=== PATIENT | female | born 1970 | race Caucasian/White ===

== ENCOUNTER → 2018-05-20 08:18 | Outpatient (CLI) | payer OTHER, SELFPAY ==
--- NOTE | 2018-05-20 08:23 | BI_ITS ---
MAMMOGRAPHY - BILATERAL SCREENING REASON FOR EXAM: Female, 47 years old. Routine annual screening examination. PERTINENT HISTORY: Grandmother with breast cancer. TECHNIQUE: Digital bilateral breast dorina (3D mammographic acquisition) in the CC and MLO projections. 2-D mediolateral oblique (MLO) and craniocaudad (CC) views of both breasts were obtained. CAD: Full Field Digital Mammography with Computer Added Detection was performed. COMPARISON: Comparison is made with prior examination of March 03, 2013. FINDINGS: Breast Composition: The breasts are extremely dense, which lowers the sensitivity of mammography. There are no dominant masses or suspicious calcifications. No other significant abnormalities are identified. There has been no significant change since the prior study. BI/SCREENING MAMM (CAD), BILAT IMPRESSION: Stable bilateral screening mammogram. Yearly follow-up mammogram recommended. (A) ASSESSMENT CATEGORY: BIRADS Category 1: Negative. A letter regarding these results will be sent to the patient by the facility within 30 days. Approximately 10% of breast cancers are not detected by mammography. A normal mammogram should not delay biopsy of a clinically suspicious abnormality. [id number] Electronically Signed: Aníbal Murguia MD at 9:22 EST Tel [phone], Service support ,
--- OUTSIDE RECORDS SUMMARY | 2018-07-06 06:14 | XMS RPT_ITS ---
:1970 Author Organization [facility] Care Team Providers Name Role Phone Laverne Johnson Attending Unavailable Hernandez Rodriguez Primary Care Unavailable PROBLEMS PROBLEMS No Problem Records FoundPROCEDURES PROCEDURES No Procedure Records FoundRESULTS RESULTS SCREENING MAMM (CAD), Observed: 05/20/2018 Status: F Source: TAMIKO BILAT 8:23 AM [facility] REPOSITORY [facility] Imaging Services [address] [place] [address] SCREENING MAMM (CAD), BILAT MR#: [id number] Acct: [id number] Name: CORKY POWELL Rep #: [id number] : 1970 F 47 From: Aníbal Murguia MD PCP: Hernandez Rodriguez DO Status: REG CLI Study: SCREENING MAMM (CAD), BILAT Date of Exam: 05/20/18 Exam# [id number] Ordering Dr: Laverne Johnson MD MAMMOGRAPHY - BILATERAL SCREENING REASON FOR EXAM: Female, 47 years old. Routine annual screening examination. PERTINENT HISTORY: Grandmother with breast cancer. TECHNIQUE: Digital bilateral breast dorina (3D mammographic acquisition) in the CC and MLO projections. 2-D mediolateral oblique (MLO) and craniocaudad (CC) views of both breasts were obtained. CAD: Full Field Digital Mammography with Computer Added Detection was performed. COMPARISON: Comparison is made with prior examination of March 03, 2013. FINDINGS: Breast Composition: The breasts are extremely dense, which lowers the sensitivity of mammography. There are no dominant masses or suspicious calcifications. No other significant abnormalities are identified. There has been no significant change since the prior study. BI/SCREENING MAMM (CAD), BILAT IMPRESSION: Stable bilateral screening mammogram. Yearly follow-up mammogram recommended. (A) ASSESSMENT CATEGORY: BIRADS Category 1: Negative. A letter regarding these results will be sent to the patient by the facility within 30 days. Approximately 10% of breast cancers are not detected by mammography. A normal mammogram should not delay biopsy of a clinically suspicious abnormality. [id number] Electronically Signed: Aníbal Murguia MD at 9:22 EST Tel [phone], Service support , CC: Hernandez Rodriguez DO; Laverne Johnson MD Integrity Analyst: Signed ALLERGIES ALLERGIES No Allergies Records FoundENCOUNTERS ENCOUNTERS ADMIT/DISCHARGE ACCOUNT ADMITTING ENCOUNTER LOCATION SOURCE NUMBER CLASS 05/20/2018 [id number] Ambulatory Tamiko Morrison [address] [place] [address] ing:OPBI Repository PAYERS PAYERS ENCOUNTER GUARANTOR PAYER SUBSCRIBER SOURCE 05/20/2018 SHEILA POWELL3331 Primary SHEILA PEÑAB: Tamiko RODRIGUEZOOTRISTON, Insurance:MEDICAL [id number] [facility]ly [facility] [address]Ljf: [facility] Number: Repository HP) [id number] Date:[id number] [address] [address]FL: 05/20/2018 Secondary NOT GIVENUNK [place] Insurance:SELF PAY [facility] Number: Effective Repository Date:2018-04-03
== END ==
PROVIDERS: Family Provider Family Medicine; PCP Family Medicine; Visit Provider Obstetrics & Gynecology
DX: Z12.31 Encounter for screening mammogram for malignant neoplasm of breast (principal)
CPT/HCPCS: 77063; 77067

== ENCOUNTER → 2018-07-23 08:38 | Outpatient (CLI) | payer OTHER, SELFPAY ==
[2018-07-22 09:56] VITALS: BMI 22.8
[2018-07-28 11:03] LABS: HPV APTIMA, High Risk Negative (Negative)
== END ==
PROVIDERS: Family Provider Family Medicine; PCP Family Medicine; Referring Provider Obstetrics & Gynecology; Visit Provider Obstetrics & Gynecology
DX: Z12.4 Encounter for screening for malignant neoplasm of cervix (principal)
CPT/HCPCS: 87624; 88175; G0145

== ENCOUNTER → 2018-09-09 09:25 | Outpatient (CLI) | payer OTHER, SELFPAY ==
[2018-07-22 09:56] VITALS: BMI 22.8
[2018-09-09 10:12] LABS: Cholesterol 220 mg/dL (200); Glucose 92 mg/dL (74-106); High Density Lipoprotein 50 mg/dL; Triglycerides 90 mg/dL; Very Low Density Lipoprotein 18 mg/dL (5-40)
== END ==
PROVIDERS: Family Provider Internal Medicine; PCP Internal Medicine; Referring Provider Obstetrics & Gynecology; Visit Provider Obstetrics & Gynecology
DX: Z13.220 Encounter for screening for lipoid disorders (principal); Z13.1 Encounter for screening for diabetes mellitus
CPT/HCPCS: 36415; 80061; 82947

== ENCOUNTER → 2018-09-30 10:51 | Outpatient (CLI) | payer OTHER, SELFPAY ==
[2018-09-30 10:22] VITALS: BMI 21.9
[2018-09-30 12:36] LABS: Absolute Lymphocyte Count 2.36 X10^3/ul (0.83-4.51); Absolute Neutrophil Count 3.4 X10^3/uL (2.0-7.7); Basophil# 0.02 X10^3/uL; Basophil% 0.3 % (0-1); Eosinophil# 0.21 X10^3/uL; Eosinophils% 3.2 % (0-5); Hematocrit 43.6 % (37-47); Hemoglobin 14.5 g/dl (12.0-15.0); Lymphocyte # 2.36 X10^3/ul (4.0); Mean Corp Hgb Conc 33.3 g/gl (32-36); Mean Corpuscular Hgb 30.6 pg (27.0-32.0); Mean Platelet Vol. 10.3 fl (6.2-12.0); Monocyte# 0.57 X10^3/uL; Monocyte% 8.7 % (0-10); Neutrophil % 51.8 % (47-70); Platelet Count 310 K/mm3 (150-450); RBC Distribution Width CV 13.1 % (11.6-14.6); RBC Distribution Width SD 43.7 fl (35.1-43.9); Red Blood Count 4.74 M/mm3 (4.2-5.4); White Blood Count 6.6 K/mm3 (4.4-11.0)
[2018-09-30 12:45] LABS: ALB/GLOB Ratio 1.2 RATIO (0.9-2.4); AST(SGOT) 16 U/L (15-37); Alanine Aminotransfer ALT/SGPT 24 U/L (13-56); Albumin, Serum 4.2 g/dL (3.2-5.0); Alkaline Phosphatase 82 U/L (45-117); Anion Gap 3 (5-15); BUN 18 mg/dL (7-18); BUN/Creat Ratio 20.9 RATIO (10-20); Calcium,Total 8.9 mg/dL (8.5-10.1); Chloride 108 mmol/L (98-107); Creatinine, Serum 0.86 mg/dL (0.55-1.02); EST Glomerular Filtration Rate 75 mL/min (>60); Est Glom Filt Rate - Afr Amer 90 mL/min (>60); Globulin 3.4 g/dL (2.2-4.2); Glucose 91 mg/dL (74-106); Potassium 4.4 mmol/L (3.5-5.1); Protein, Total 7.6 g/dL (6.4-8.2); Sodium Level 138 mmol/L (136-145)
[2018-09-30 12:46] LABS: POSITIVE COUNT NO; POSITIVE DIFFERENTIAL NO; POSITIVE MORPHOLOGY NO
== END ==
PROVIDERS: Family Provider Internal Medicine; PCP Family Medicine; Visit Provider Internal Medicine
DX: Z00.00 Encounter for general adult medical examination without abnormal findings (principal)
CPT/HCPCS: 36415; 80053; 85025

== ENCOUNTER → 2024-10-08 | Outpatient (CLI) | payer OTHER, SELFPAY ==
[2024-10-08 13:26] LABS: Absolute Lymphocyte Count 2.79 X10^3/uL (0.83-4.51); Absolute Neutrophil Count 3.3 X10^3/uL (2.0-7.7); Basophil# 0.02 X10^3/uL; Basophil% 0.3 % (0-1); Eosinophil# 0.15 X10^3/uL; Eosinophils% 2.2 % (0-5); Hematocrit 41.8 % (37-47); Hemoglobin 14.5 g/dL (12.0-15.0); Lymphocyte # 2.79 X10^3/ul (0.83-4.51); Lymphocyte % 41.5 % (19-41); Mean Corp Hgb Conc 34.7 g/dL (32-36); Mean Corpuscular Hgb 31.3 pg (27.0-32.0); Mean Corpuscular Volume 90.1 fL (81-99); Monocyte% 7.4 % (0-10); NRBC Flagged by Analyzer 0 % (0-5); Neutrophil # 3.25 X10^3/uL (2.7-7.7); Neutrophil % 48.3 % (47-70); Platelet Count 278 K/mm3 (150-450); RBC Distribution Width CV 12.8 % (11.6-14.6); RBC Distribution Width SD 42.2 fl (35.1-43.9); Red Blood Count 4.64 M/mm3 (4.2-5.4); White Blood Count 6.7 K/mm3 (4.4-11.0)
[2024-10-08 13:50] LABS: Hemoglobin A1c 5.6 % (<=5.6)
[2024-10-08 14:41] LABS: ALB/GLOB Ratio 1.5 RATIO (0.9-2.4); AST(SGOT) 21 U/L (<=31); Alanine Aminotransfer ALT/SGPT 20 U/L (<=34); Albumin, Serum 4.5 g/dL (3.5-5.0); Alkaline Phosphatase 88 U/L (35-104); Anion Gap 11 (5-15); BUN 17 mg/dL (4-19); BUN/Creat Ratio 20.6 RATIO (10-20); Calcium,Total 9.2 mg/dL (7.6-11.0); Chloride 102 mmol/L (98-108); Cholesterol 224 mg/dL (<=200); Creatinine, Serum 0.84 mg/dL (0.70-1.20); EST Glomerular Filtration Rate 82 (>60); Globulin 3.1 g/dL (2.2-4.2); Glucose 88 mg/dL (70-99); High Density Lipoprotein 50 mg/dL; Low Density Lipoprotein Calc. 157 mg/dL; Protein, Total 7.6 g/dL (5.9-8.4); Sodium Level 137 mmol/L (133-145); Total Bilirubin 1.26 mg/dL (0.00-1.30); Triglycerides 83 mg/dL; Very Low Density Lipoprotein 17 mg/dL (5-40); cholesterol:hdl ratio screen 4.47
[2024-10-08 14:58] LABS: Vitamin D,25 Hydroxy 41.3 ng/mL (30-100)
[2024-10-13 10:09] LABS: HPV APTIMA, High Risk Negative (Negative)
== END | disposition home or self-care (01) ==
LOC: LAB 12:25
PROVIDERS: Referring Provider Obstetrics & Gynecology; Visit Provider Obstetrics & Gynecology
DX: Z00.00 Encounter for general adult medical examination without abnormal findings (principal); Z13.1 Encounter for screening for diabetes mellitus; Z13.29 Encounter for screening for other suspected endocrine disorder; Z13.21 Encounter for screening for nutritional disorder; Z13.220 Encounter for screening for lipoid disorders
CPT/HCPCS: 36415; 80053; 80061; 82306; 83036; 84443; 85025; 87624; 88175; G0145

== ENCOUNTER → 2024-10-13 | Outpatient (CLI) | payer OTHER, SELFPAY ==
--- NOTE | 2024-10-13 14:45 | BI_ITS ---
EXAM: SCRN MAMM (CAD)W/DEZ BILAT DATE: 10/13/2024 CLINICAL HISTORY: F, Age 54 y/o , SCREENING MAMMOGRAM BREAST CANCER RISK ASSESSMENT: Not reported TECHNIQUE: Bilateral screening digital breast tomosynthesis with 2D and 3D images. Computer aided detection. COMPARISON: Prior exam(s) were compared FINDINGS: TISSUE DENSITY: The breast tissue is extremely dense which lowers the sensitivity of mammography. Bilateral Breast Mammographic Findings: No suspicious masses, calcifications or other abnormalities are identified. BI/SCRN MAMM (CAD)W/DEZ BILAT IMPRESSION: OVERALL FINAL ASSESSMENT: BIRADS 1 NEGATIVE RECOMMENDATION: Routine annual follow-up in 1 Year A letter with findings and recommendations will be mailed to the patient. Reading Location: [id number]
== END | disposition home or self-care (01) ==
LOC: OPBI 14:16
PROVIDERS: Referring Provider Obstetrics & Gynecology; Visit Provider Obstetrics & Gynecology
DX: Z12.31 Encounter for screening mammogram for malignant neoplasm of breast (principal)
CPT/HCPCS: 77063; 77067

== ENCOUNTER 2024-12-16 07:12 | Day surgery (SDC) | payer OTHER, SELFPAY ==
[2024-12-16] VITALS (9 sets, daily range): BP systolic 90–134; BP diastolic 58–90; PULSE 64–84; RESP 16–18; TEMP 36.4–36.7; O2SAT 97–98; BMI 23.4
--- NOTE | 2024-12-16 07:22 | H&P.OPEN ---
[facility] General General Date of Service: 12/16/24 HPI Narrative CORKY REYN[place]DS[place]LE, is a 54 F who presents for screening colonoscopy. Patient never had previous colonoscopy. Patient denies any family history of colon cancer. Patient has bowel movements daily denies any blood. Patient denies any chronic abdominal pain/nausea/vomiting/reflux. [facility] Medical History Wears glasses High cholesterol Non-smoker Frequent headaches Psoriasis History of fracture of nose Home Medications ?Medication ?Instructions ?Recorded ?Last Taken ?Type clobetasol 0.05 % topical ointment 1 applic topical QHS #30 grams 10/08/24 12/15/24 Rx Allergy/AdvReac Type Severity Reaction Status Date / Time penicillin G Allergy Mild Other Verified 12/16/24 07:27 Family History Mother Kidney disease Hypertension Father Diabetes Heart disease Hyperlipidemia Myocardial infarction Grandmother Breast cancer CVA (cerebral vascular accident) Surgical History History of nasal surgery Social History Smoking Status: Never smoker alcohol intake: never substance use type: does not use caffeine: Yes what type of physical activity do you participate in: walking seatbelt use: always do you feel safe at home: Yes additional social history: Shawn- Chiro Patient is a repairer [employer] Past Medical/Surgical History Planned Operation Planned Operative Procedure(s): cscope Previous Hospitalizations/Surgeries HX Hospitalizations: No Any Problems With Anesthesia: No You/Your Family Experience Fever (Hyperthermia) With Anes: No Cholinesterase deficiency: No Cardiovascular Hx Hypertension: No Respiratory Hx Sleep Apnea: No Hx Respiratory Tract Infection/Cold (presently): No Do You Snore Loudly (louder than talking or can be heard): No Do You Often Feel Tired/ Fatigued/ Sleepy Dring Daytime?: No Has Anyone Observed You Stop Breathing During Sleep?: No Result (for STOP score): Negative Smoking Status: Never smoker Neurological Does patient have nerve stimulator: No Reproduction : No Allergies penicillin G Allergy (Mild, Verified 12/16/24 07:27) Other Discharge Is Pt Admitted From a Correction, or a Alf: No After D/C, Where Do you Plan to Go: Return Home Physical Exam Const alert, oriented x3 and no apparent distress HEENT normocephalic and head/scalp atraumatic Resp normal respiratory effort Cardio regular rate GI soft to palpation and non-tender; Negative for non-distended Palpation: Negative for guarding Extremity no clubbing, cyanosis or edema Skin no rashes or lesions noted Neuro CN's II-XII intact bilaterally Psych mental status grossly normal Assessment & Plan Assessment/Plan (1) Screening for colon cancer: Surgery Risks - Colonoscopy I discussed with the patient the risks of the procedure: Yes Risks Include but are not Limited To: Risks include but are not limited to: Bleeding, perforation requiring further surgery, inability to complete colonoscopy requiring barium enema.
[2024-12-16] MEDS: Lactated Ringers 1,000 ML 15 ML IV (07:38)
--- NOTE | 2024-12-16 07:54 | PCM.PRE.AN2 ---
ASA Classification* ASA Classification ASA Classification: 1 Assessment & Plan Anesthesia* Anesthesia Assessment Anesthesia Assessment: Discussed sedation and/or anesthesia options, risks, benefits, and alternatives with patient/parents/legal guardian/POA. Questions invited. The patient/parents/legal guardian/POA seems to understand and agrees to proceed with anesthesia plan. Reviewed the physical assessment, medical history, allergy history and patient home medications list prior to surgery/procedure/anesthetic and documented any changes. Performed airway and anesthesia risk assessments. Anesthesia Type Anesthesia Type: MAC History Source History Obtained from:: Patient and Chart Anesthesia Focused Assessment* Temperature: 98.0 F Pulse Rate: 84 Blood Pressure: 134/90 Respiratory Rate: 18 Pulse Ox: 98 Airway Assessment Mouth opens: >3 cm Mallampati Score: I Teeth Condition: Caps/Crowns Neck Range of motion (ROM): Full ROM Labs Anesthesia Preop lab: CBC WBC 6.7 K/mm3 (4.4-11.0) 10/08/24 12:10/08/24 RBC 4.64 M/mm3 (4.2-5.4) 10/08/24 12:49 10/08/24 Hgb 14.5 g/dL (12.0-15.0) 10/08/24 12:49 10/08/24 Hct 41.8 % (37-47) 10/08/24 12:10/08/24 Plt Count 278 K/mm3 (150-450) 10/08/24 12:49 10/08/24 CHEMISTRY Potassium 4.0 mmol/L (3.3-5.1) 10/08/24 12:10/08/24 Sodium 137 mmol/L (133-145) 10/08/24 12:49 10/08/24 BUN 17 mg/dL (4-19) 10/08/24 12:49 10/08/24 Creatinine 0.84 mg/dL (0.70-1.20) 10/08/24 12:10/08/24 Glucose 88 mg/dL (70-99) 10/08/24 12:49 10/08/24 TSH 1.580 uIU/mL (0.300-4.200) 10/08/24 12:49 10/08/24 COAG Pre-Assessment Diagnosis/Proposed Procedure Planned Operative Procedure(s): cscope Anesthesia History Anesthesia History - crime scene examiner: Anesthesia History - crime scene examiner Hx Hospitalization No 12/16/24 07:24 Any Problems With Anesthesia No 12/16/24 07:24 Cholinesterase deficiency No 12/16/24 07:24 You/Your Family Experience No 12/16/24 07:24 fever (hyperthermia) with Relationship Recent Exposure to Contagious No 12/16/24 07:28 Disease Does patient have nerve No 12/16/24 07:24 stimulator Patient instructed to have device shut off --Does patient have Pacemaker No 12/16/24 07:28 or ICD? When Was Last Pacemaker Check QUESTION #4 FULL TEXT: You/Your Family Experience fever (hyperthermia) with Anesthesia Last Oral Intake Last Oral intake: Last Oral Intake NPO since 21:00 12/16/24 07:28 Meds taken in AM with sips of water? Meds patient instructed to take am of surgery PONV PONV - crime scene examiner: PONV - crime scene examiner Female Yes 12/14/24 12:16 HX of Motion Sickness No 12/14/24 12:16 HX of N/V After Surgery No 12/14/24 12:16 Non-Smoker Yes 12/14/24 12:16 Duration of Surgery greater No 12/14/24 12:16 than 60 minutes Number of Risk Factors 2 12/14/24 12:16 PONV Score Moderate Risk 12/14/24 12:16 Height & Weight Height & Weight: Anesthesia: Height & Weight Height 5 ft 3 in 12/16/24 07:28 Weight: 60 kg 12/16/24 07:28 Body Mass Index (BMI) 23.4 12/16/24 07:28 Respiratory Assessment Respiratory Assessment - crime scene examiner: Respiratory Tract Infection Hx - crime scene examiner Hx Respiratory Tract Infection No 12/16/24 07:24 STOP Sleep Apnea STOP Sleep Apnea - crime scene examiner: STOP Sleep Apnea - crime scene examiner Hx Hypertension No 12/16/24 07:24 Hx Sleep Apnea No 12/16/24 07:24 CPAP BIPAP Do you snore loudly (louder No 12/16/24 07:24 than talking or can be heard Do you often feel tired/ No 12/16/24 07:24 fatigued/ sleepy during daytime? Has anyone observed you stop No 12/16/24 07:24 breathing during sleep? STOP Results Negative 12/16/24 07:24 QUESTION #5 FULL TEXT : Do you snore loudly (louder than talking or can be heard through closed doors)? Tobacco Use History Tobacco Use History - crime scene examiner: Tobacco Use History - crime scene examiner Tobacco Use Smoking Status Never smoker 12/16/24 07:24 Hx Tobacco Use No 12/14/24 12:16 Years Smoking Packs Smoked per Day Smoking Cessation Date was within the last 15 years Hx Smoking Cessation Date Hx Smoking Cessation Counseling Hematologic Medial History Hematologic Hx - crime scene examiner: Hematologic Medical Hx - correctional agency director Hx of Blood Transfusion No 12/14/24 12:16 Hx of Transfusion in last 3 No 12/14/24 12:16 Months Date of Last Transfusion (if within last 3 months) Ever experience any problems No 12/14/24 12:16 with transfusion(s)? Specify any problems Hx of Preganancy in last 3 N/A 12/14/24 12:16 Months Nurse Filling Out Transfusion NBUCHER 12/14/24 12:16 & Questions: Date: 12/14/24 12/14/24 12:16 Time: 12:17 12/14/24 12:16 Patient unable to answer at this time (ie. confused, unrespo /Reproduction History /Reproductive History - crime scene examiner: /Reproductive Hx- crime scene examiner Hx Now No 12/16/24 07:24 Gestational Age (in weeks): EDC: Hx Hx Para Hx Section SAB No 12/14/24 12:16 Active Medications Active Medications: Current Medications Generic Name Dose Route Start Last Admin Trade Name Daylin PRN Reason Stop Dose Admin Lactated Ringer's 1,000 mls @ 15 mls/hr 12/16/24 07:30 12/16/24 07:38 IV 15 mls/hr .Q48H DEON Administration PFSH Medical History Wears glasses High cholesterol Non-smoker Frequent headaches Psoriasis History of fracture of nose Home Medications ?Medication ?Instructions ?Recorded ?Last Taken ?Type clobetasol 0.05 % topical ointment 1 applic topical QHS #30 grams 10/08/24 12/15/24 Rx Allergy/AdvReac Type Severity Reaction Status Date / Time penicillin G Allergy Mild Other Verified 12/16/24 07:27 Family History Mother Kidney disease Hypertension Father Diabetes Heart disease Hyperlipidemia Myocardial infarction Grandmother Breast cancer CVA (cerebral vascular accident) Surgical History History of nasal surgery Social History Smoking Status: Never smoker alcohol intake: never substance use type: does not use caffeine: Yes what type of physical activity do you participate in: walking seatbelt use: always do you feel safe at home: Yes additional social history: Shawn- Chiro Patient is a haircutter Review of Systems (Anesthesia) ROS Narrative System reviewed and no additional complaints, except as documented.
--- NOTE | 2024-12-16 08:30 | COLBX_PTH ---
PATIENT: CORKY POWELL LOC: EN U#:[id number] AGE/SX: 54/F ROOM: RE12/16/[address]: Dr. Jojo Mcmahan MD : 1970 BED: DIS: 12/16/2024 SPEC #: [id number] RECD: 12/16/24 11:26 STATUS: BHAVIK DEWEY #: [id number] ALFIE: 12/16/24 08:[address]: Jojo Mcmahan DEPT: SURGICAL PATHOLOGY RECD BY: Phoenix Dunbar ENTERED: 12/16/24 13:49 SP TYPE: COLON BX OTHR DR: Margarita Primary Care Phys Tissues: A - Ascending colon B - Transverse colon Procedures: Surgery Specimen Level IV HEADER OPERATION: Colonoscopy with biopsy PRE-OP DIAGNOSIS: Screening for colon cancer TISSUE SUBMITTED: A- Ascending colon polyp biopsy, B- Transverse colon polyp biopsy MICROSCOPIC DIAGNOSIS A. Ascending colon, polyp, biopsy: Tubular adenoma. B. Transverse colon, polyp, biopsy: Hyperplastic polyp. MICROSCOPIC DESCRIPTION Slides are reviewed. GROSS DESCRIPTION A. Received in fixative is one container labeled with the patient's name and designated Ascending colon polyp biopsy. The specimen consists of two irregular fragments of light franklin soft tissue that in aggregate measure 0.1 and 0.2 cm. The specimen is totally submitted in one cassette. B. Received in fixative is one container labeled with the patient's name and designated Transverse colon polyp biopsy. The specimen consists of one irregular fragment of light franklin soft tissue that measures 0.3 cm. The specimen is totally submitted in one cassette. Abelino 12/16/2024 CPT:85931f0
--- NOTE | 2024-12-16 09:09 | OP.COLON_ITS ---
Patient Name: Pau Mckinney Procedure Date: 12/16/2024 8:42 AM Date of : 1970 Age: 54 Procedure: Colonoscopy Indications: Screening for colorectal malignant neoplasm Providers: Jojo Mcmahan MD Referring MD: No Primary Care Physician Medicines: Monitored Anesthesia Care Patient Profile: This is a 54 year old female. Last Colonoscopy: none. The patient's first colonoscopy is today. Complications: No immediate complications. Procedure: Pre-Anesthesia Assessment: - Prior to the procedure, a History and Physical was performed, and patient medications and allergies were reviewed. The patient's tolerance of previous anesthesia was also reviewed. The risks and benefits of the procedure and the sedation options and risks were discussed with the patient. All questions were answered, and informed consent was obtained. Prior Anticoagulants: The patient has taken no anticoagulant or antiplatelet agents. ASA Grade Assessment: Per anesthesia. After reviewing the risks and benefits, the patient was deemed in satisfactory condition to undergo the procedure. After I obtained informed consent, the scope was passed under direct vision. Throughout the procedure, the patient's blood pressure, pulse, and oxygen saturations were monitored continuously. The Colonoscope was introduced through the anus and advanced to the cecum, identified by the appendiceal orifice, ileocecal valve and palpation. The colonoscopy was performed without difficulty. The patient tolerated the procedure well. The quality of the bowel preparation was good. Scope In: 8:49:48 AM Scope Withdrawal Time 0 hours 11 minutes 29 seconds Scope Out: 9:04:53 AM Total Procedure Duration Time 0 hours 15 minutes 5 seconds Findings: The perianal and digital rectal examinations were normal. Two sessile polyps were found in the transverse colon and ascending colon. The polyps were less than 5 mm in size. These polyps were removed with a cold biopsy forceps. Resection and retrieval were complete. A few small-mouthed diverticula were found in the sigmoid colon and descending colon. The exam was otherwise without abnormality on direct and retroflexion views. Impression: - Two less than 5 mm polyps in the transverse colon and in the ascending colon, removed with a cold biopsy forceps. Resected and retrieved. - Diverticulosis in the sigmoid colon and in the descending colon. - The examination was otherwise normal on direct and retroflexion views. Recommendation: - Discharge patient to home. - Resume previous diet. - Continue present medications. - Await pathology results. - Repeat colonoscopy in 5 years for surveillance based on pathology results. Procedure Code(s): --- Professional --- 86601, PT, Colonoscopy, flexible; with biopsy, single or multiple Diagnosis Code(s): --- Professional --- D12.3, Benign neoplasm of transverse colon (hepatic flexure or splenic flexure) D12.2, Benign neoplasm of ascending colon Z12.11, Encounter for screening for malignant neoplasm of colon K57.30, Diverticulosis of large intestine without perforation or abscess without bleeding CPT copyright 2021 [employer]. All rights reserved. The codes documented in this report are preliminary and upon furniture removalist review may be revised to meet current compliance requirements. MD Jojo Garrido MD 12/16/2024 9:09:22 AM This report has been signed electronically. Number of Addenda: 0 Note Initiated On: 12/16/2024 8:42 AM
--- NOTE | 2024-12-16 09:09 | OP.CCLET_ITS ---
12/16/2024 No Primary Care Physician Re : Colonoscopy procedure for Pau [place] Dear Care Physician This procedure was performed on Monday, December 16, 2024. My impressions and recommendations are as follows: Impressions : - Two less than 5 mm polyps in the transverse colon and in the ascending colon, removed with a cold biopsy forceps. Resected and retrieved. - Diverticulosis in the sigmoid colon and in the descending colon. - The examination was otherwise normal on direct and retroflexion views. Recommendations : - Discharge patient to home. - Resume previous diet. - Continue present medications. - Await pathology results. - Repeat colonoscopy in 5 years for surveillance based on pathology results. My findings are described in the full procedure note, which is enclosed. If I can be of further assistance, please feel free to contact me at Doctor phone number(s): , Work: . Sincerely, MD Jojo Garrido MD 12/16/2024 9:09:22 AM This report has been signed electronically.
--- NOTE | 2024-12-16 09:13 | PCM.POST.ANE ---
Anesthesia: Postop Eval I Current Vital Signs Temperature: 97.5 F Pulse Rate: 68 Blood Pressure: 96/64 Respiratory Rate: 16 Pulse Ox: 98 Oxygen Delivery Method: Room Air Assessment Airway patent: Yes Spontaneous unlabored respirations: Yes Mental status: Asleep nausea: No Vomiting: No Anesthesia Complication: No Fluid Hydration Crystalloid volume administer (ml): 600 Total IV fluid infused: 600 Progress Note Anesthesia document: Postop Eval 1 completed: Yes
--- NOTE | 2024-12-16 09:36 | PCM.POSTANE2 ---
Anesthesia Postop Eval I Sum Postop Eval Completion status Anesthesia document: Postop Eval 1 completed: Yes Anesthesia Postop Eval I Summary Anesthesia Postop Eval I Summary: Anesthesia Postop Eval I: Assessment Summary Airway patent Yes 12/16/24 09:14 [email or web address] Spontaneous unlabored Yes 12/16/24 09:14 [email or web address] respirations Mental status Asleep 12/16/24 09:14 [email or web address] nausea No 12/16/24 09:14 [email or web address] Vomiting No 12/16/24 09:14 [email or web address] Anesthesia Postop Eval I: Fluid Summary Crystalloid volume administer 600 12/16/24 09:14 [email or web address] (ml) Colloids volume administered ( ml) Blood Product volume administered (ml) Total IV fluid infused 600 12/16/24 09:14 [email or web address] Anesthesia Postop Eval I: Summary Notes Anesthesia Complication No 12/16/24 09:14 [email or web address] Anesthesia Complication Comment: Post-operative progress note Anesthesia: Postop Eval II Evaluation Mental status: Awake and Calm Pain Level: 1 nausea: No Vomiting: No Complications Anesthesia Complication: No
== END 2024-12-16 09:57 | disposition home or self-care (01) ==
LOC: EN 07:13 → AC 07:14
PROVIDERS: Visit Provider Surgery
PROC: 0DJD8ZZ Inspection of Lower Intestinal Tract, Via Natural or Artificial Opening Endoscopic (ICD-10-PCS; CPT 45378; principal; 2024-12-16 08:25)
DX: Z12.11 Encounter for screening for malignant neoplasm of colon (principal); K57.30 Diverticulosis of large intestine without perforation or abscess without bleeding; D12.2 Benign neoplasm of ascending colon; E78.00 Pure hypercholesterolemia, unspecified; K63.5 Polyp of colon
CPT/HCPCS: 45380; 88305; J2405